=== PATIENT | female | born 1975 | race Caucasian/White ===

== ENCOUNTER 2016-07-06 17:28 | Emergency (ER) | payer SELFPAY ==
[~2016-07-06] VITALS: Ht 162.6 cm; Wt 64.9 kg
[~2016-07-06 17:28] MED LIST: CLINDAMYCIN HC150 MG PO; KEFLEX500 MG PO; NAPROSYN500 MG PO; PYRIDIUM200 MG PO; TRAMADOL HCL50 MG PO
[2016-07-06] MEDS ORDERED: NAPROXEN500 MG PO (19:36)
[2016-07-06] MEDS ORDERED: PERCOCET 5/31 TABLET PO (19:36)
[2016-07-06 19:46] VITALS: BP 120/67
== END 2016-07-06 19:47 | disposition home or self-care (01) ==
LOC: EME 17:28
DX: M54.42 Lumbago with sciatica, left side (principal)
CPT/HCPCS: 99281; 99284; J1885

== ENCOUNTER 2016-09-21 16:55 | Emergency (ER) | payer SELFPAY ==
[~2016-09-21] VITALS: Ht 162.6 cm; Wt 64.1 kg
[~2016-09-21 16:55] MED LIST changes: +NAPROXEN500 MG PO; +PERCOCET 5/31 TABLET PO
[2016-09-21 18:12] LABS: HEMATOCRIT 37.2 % (36.0-46.0); MCHC 33.3 G/DL (30.0-36.0); MCV 89.9 FL (83-99); PLATELET COUNT 168 K/uL (156-360); RBC DIS.WIDTH-CV 12.8 % (11.8-14.6); RBC DIS.WIDTH-SD 42.2 % (39-53); RED BLOOD COUNT 4.14 M/uL (3.80-5.20); WHITE BLOOD COUNT 9.1 K/uL (4.1-10.2)
[2016-09-21 18:31] LABS: CHLORIDE 103 mEq/L (99-109); SODIUM 136 mEq/L (136-147)
[2016-09-21 18:33] LABS: GLUCOSE 117 mg/dL (70-99)
[2016-09-21 18:34] LABS: ANION GAP 10 MEQ/L (2-14)
[2016-09-21 18:35] LABS: TOTAL BILIRUBIN 0.2 mg/dL (0.0-1.0)
[2016-09-21 18:37] LABS: ALKALINE PHOSPHATASE 66 IU/L (3-129); GFR ESTIMATE (CALCULATED) > 59 mL/min/
[2016-09-21 18:38] LABS: UREA NITROGEN (BUN) 9 mg/dL (9-23)
[2016-09-21 18:45] LABS: QUANTITATIVE HCG < 4.0 MIU/ML
[2016-09-21] MEDS ORDERED: ZOFRAN ODT4 MG PO (19:52)
[2016-09-21 20:28] VITALS: BP 125/61
== END 2016-09-21 20:29 | disposition home or self-care (01) ==
LOC: EME 16:55
PROVIDERS: Nurse Practitioner Family
DX: M79.1 Myalgia (principal); R10.32 Left lower quadrant pain; R50.9 Fever, unspecified; Z87.442 Personal history of urinary calculi; Z87.440 Personal history of urinary (tract) infections; F17.200 Nicotine dependence, unspecified, uncomplicated
CPT/HCPCS: 71020; 74000; 76856; 80053; 84702; 85027; 99281; 99284; J1885; J2405; J7030

== ENCOUNTER 2016-09-23 16:36 | Emergency (ER) | payer SELFPAY ==
[~2016-09-23] VITALS: Ht 162.6 cm; Wt 62.1 kg
[~2016-09-23 16:36] MED LIST changes: +ZOFRAN ODT4 MG PO
[2016-09-23 16:54] VITALS: BP 93/67
== END 2016-09-23 17:46 | disposition left against medical advice (07) ==
LOC: EME 16:36
DX: R50.9 Fever, unspecified (principal); R10.9 Unspecified abdominal pain; K92.1 Melena; Z53.21 Procedure and treatment not carried out due to patient leaving prior to being seen by health care provider
CPT/HCPCS: 85027